=== PATIENT | female | born 2000 | race Caucasian/White ===

== ENCOUNTER 2022-03-15 06:42 | Emergency (ER) | payer SELFPAY ==
[~2022-03-15] VITALS: Ht 157.5 cm; Wt 53.9 kg
[2022-03-15 06:59] VITALS: BP 128/92
[2022-03-15] MEDS ORDERED: DIPHENHYDRAMINE 25MG CAPSULE PO ONE (07:30)
[2022-03-15] MEDS ORDERED: DEXAMETHASONE 4MG/ML 1ML VIAL IM ONE (07:30)
[2022-03-15] MEDS ORDERED: DIPH25CA83 PO (08:11)
== END 2022-03-15 08:16 | disposition home or self-care (01) ==
LOC: ER 06:42
DX: T78.40XA Allergy, unspecified, initial encounter (principal); X58.XXXA Exposure to other specified factors, initial encounter
CPT/HCPCS: 96372; 99283; J1100; Q0163